=== PATIENT | female | born 1985 | race Caucasian/White ===

== ENCOUNTER → 2016-05-16 | Outpatient (CLI) | payer BC ==
[~2016-05-16] MED LIST: BCPILLS PO; BUPR-79 PO; THY/30 PO; VENL75TA4 PO
== END | disposition home or self-care (01) ==
LOC: C.PAPS 17:08
PROVIDERS: ATTEND Obstetrics & Gynecology
DX: Z01.419 Encounter for gynecological examination (general) (routine) without abnormal findings (principal)

== ENCOUNTER 2017-03-11 01:57 | Emergency (ER) | payer BC ==
[~2017-03-11] VITALS: Ht 167.6 cm; Wt 67.2 kg
[2017-03-11 02:02] VITALS: TEMP 36.5; Ht 167.6 cm; Wt 67.2 kg
[2017-03-11] MEDS ORDERED: METOCLOPRAMIDE HCL INJ 5 MG/ML 2 ML VIAL IV STA (02:08)
[2017-03-11] MEDS ORDERED: KETOROLAC TROMETHAMINE 30 MG/ML VIAL IV STA (02:08)
[2017-03-11] MEDS ORDERED: DiphenhydrAMINE HCL 50 MG/ML VIAL IV STA (02:08)
--- NOTE | 2017-03-11 02:59 | EMERGENCY ROOM VISIT NOTE ---
History First contact with patient: 02:04 Chief Complaint: HEADACHE Stated Complaint: MIGRAINE History of Present Illness The patient is a 32 year old female who presents to the Emergency Room with complaints of migraine today with nausea. Patient states she is crying and slowly developed a migraine today that is similar to prior. It was slow in onset. She describes her headache as throbbing, ranging in severity 8 out of 10 throughout the left frontal region. It does not radiate. Patient with some nausea and photophobia. Patient denies sudden onset headache, chest pain, dyspnea, fever, chills, numbness, tingling, weakness, cold symptoms, neck stiffness, abdominal pain. Normal imaging in the past. Review of Systems See HPI for pertinent positives & negatives. A total of 10 systems reviewed and were otherwise negative. Past Medical/Surgical History Medical Problems: (1) ACUTE RENAL FAILURE, UNSPECIFIED (2) ASTHMA, UNSPECIFIED (3) BIPOLAR DISORDER, UNSPECIFIED (4) DEPRESSIVE DISORDER NEC (5) ivonne filter in place (6) HX-VENOUS THROMBOSIS&EMBOLISM (7) HYPERTENSION NOS (8) HYPOTHYROIDISM NOS (9) MIGRAINE UNSPECIFIED W/O INTRACT MGRN W/O STATUS MIGRAINOSUS (10) OTH PULMON EMBOLISM/INFARCT (11) RHABDOMYOLYSIS (12) SCHIZOPHRENIA NOS-UNSPEC (13) Self-harm (14) TOBACCO USE DISORDER (15) Fishtail Teeth Removal Social History Smoking Status: Former Smoker Alcohol Use: occasionally Drug Use: marijuana Marital Status: in relationship Housing Status: lives alone Occupation Status: employed Current/Historical Medications Scheduled Control Pills ( Control Pills), 1 TAB PO DAILY Bupropion (Wellbutrin Sr), 150 MG PO DAILY Thyroid (Parks Thyroid), 1 TAB PO DAILY Venlafaxine Hcl (Effexor), 75 MG PO DAILY Physical Exam Vital Signs Date Time Temp Pulse Resp B/P (MAP) Pulse Ox O2 Delivery O2 Flow Rate FiO2 03/11/17 02:02 36.5 80 18 162/116 100 Room Air Physical Exam VITALS: Vitals are noted on the nurse's note and reviewed by myself. Vital signs hypertensive. GENERAL: Pleasant female, in no acute distress, nondiaphoretic, well-developed well-nourished. SKIN: The skin was without rashes, erythema, edema, or bruising. There is no tenting of the skin. Capillary reflex less than 2 seconds. HEAD: Normocephalic atraumatic. EARS: External auditory canals clear, tympanic membranes pearly felipe without erythema or effusion bilaterally. EYES: Pupils equal round and reactive to light and accommodation. Conjunctivae without injection, sclerae without icterus. Extraocular movements intact. NOSE: Patent, turbinates without inflammation or discharge. No sinus tenderness. MOUTH: Mucous membranes moist. Pharynx without erythema or exudate. Uvula midline. Airway patent. Tongue does not deviate. NECK: Supple without nuchal rigidity. No lymphadenopathy. No thyromegaly. Cervical spine is nontender. No JVD. HEART: Regular rate and rhythm without murmurs gallops or rubs. LUNGS: Clear to auscultation bilaterally without wheezes, rales or rhonchi. No dullness to percussion. No retractions or accessory muscle use. ABDOMEN: Positive bowel sounds x 4. Normal tympanic percussion. Soft, nontender, without masses or organomegaly. Good sign negative. No guarding or rebound tenderness. MUSCULOSKELETAL: No muscle atrophy, erythema, or edema noted. NEURO: Patient was alert and oriented to person place and time. Normal sensation to light and sharp touch. No focal neurological deficits. Cranial nerves II through XII grossly intact. No pronator drift. Cerebellar exam intact. Medical Decision & Procedures Medications Administered Medications (Trade) Dose Ordered Sig/Waqar Route Start Time Stop Time Status Last Admin Dose Admin Ketorolac Tromethamine (Toradol Inj) 30 mg NOW STAT IV 03/11/17 02:08 03/11/17 02:10 DC 03/11/17 02:25 30 MG Metoclopramide HCl (Reglan Inj) 10 mg NOW STAT IV 03/11/17 02:08 03/11/17 02:10 DC 03/11/17 02:24 10 MG Diphenhydramine HCl (Benadryl Inj) 12.5 mg NOW STAT IV 03/11/17 02:08 03/11/17 02:10 DC 03/11/17 02:25 12.5 MG ED Course Prior records/ancillary studies reviewed. Additional history obtained from family Triage Nursing notes reviewed. The patient's history was concerning for headache. Differential diagnosis: Etiologies such as migraine headache, meningitis, sinusitis, CO exposure, ICH, SAH, infection, tumor, headache, sinus thrombosis, arterial dissection, as well as others were entertained. Physical examination findings: As above. Non-focal. ER treatment provided: By mouth fluids, Toradol, Reglan, Benadryl On reassessment the patient felt better. Diagnostics interpreted by me: Deferred This appears to be consistent with migraine. Patient has a long-standing history of migraines and symptoms feel similar. Patient was upset was crying and this triggered her migraine. She has had normal imaging in the past. Patient was advised to rest, stay well-hydrated and to follow-up family care in a few days or here in the ER sooner for headache, fevers, neck status, worsening signs or symptoms or as needed. Patient was neurovascularly and neurologically intact. She is well-appearing.. By the evaluation outlined above emergent etiologies such as meningitis, sinusitis, CO exposure, ICH, SAH, infection, temporal arteritis, tumor, sinus thrombosis, arterial dissection, as well as others were deemed relatively unlikely. The pt informed about the findings as listed above. All questions were answered and pleased with the treatment. Return instructions were outlined and the patient was discharged in stable condition. Referral: The patient was referred back to their primary care physician for follow-up in 2 to 3 days for a recheck of the current condition. Medical Decision As above Medication Reconcilliation Current Medication List: was personally reviewed by me Blood Pressure Screening Patient's blood pressure: Elevated blood pressure Blood pressure disposition: Elevated BP felt to be situational Impression Primary Impression: Migraine Departure Information Dispostion Home / Self-Care Condition GOOD Referrals No Doctor, Assigned (PCP) Patient Instructions My [facility] Additional Instructions DO NOT drive, drink alcohol, operate machinery, or perform dangerous activities today. You were given medications in the ER that can affect your ability to safely function or operate a vehicle. Rest today in a quiet, peaceful, dark environment and get a full 8-10 hrs of sleep tonight. Avoid loud noises, smoke/smoking, alcohol, bright lights, stress, or physical exertion today to minimize the chance the headache may return. Continue current medications. Ibuprofen(Motrin, Advil) may be used for fever or pain. Use 600mg every six hours as needed. Take with food. Avoid using more than 2400mg in a 24 hour period. Do not use 2400mg per day for more than three consecutive days without physician direction. Prolonged inappropriate use can lead to stomach upset or ulcers. (AND/OR) Acetaminophen(Tylenol) may be used for fever or pain. Use 1000mg every six hours as needed. Avoid using more than 3000mg in a 24 hour period. Return to the ER for passing out, worsening headache, vision problems, neck stiffness/pain, fevers, vomiting, worsening of your condition, or as needed. Follow up with your primary physician and/or a neurologist in 2-3 days for a recheck of your current condition. Problem Qualifiers Primary Impression: Migraine Migraine type: without aura Status migrainosus presence: without status migrainosus Intractability: not intractable Qualified Codes: G43.009 - Migraine without aura, not intractable, without status migrainosus
[2017-03-11 03:04] VITALS: BP 122/76; PULSE 78; O2SAT 97
== END 2017-03-11 03:04 | disposition home or self-care (01) ==
LOC: C.EDB 01:58
DX: G43.909 Migraine, unspecified, not intractable, without status migrainosus (principal); I10 Essential (primary) hypertension; E03.9 Hypothyroidism, unspecified; F31.9 Bipolar disorder, unspecified; F20.9 Schizophrenia, unspecified; J45.909 Unspecified asthma, uncomplicated; Z86.711 Personal history of pulmonary embolism; Z86.718 Personal history of other venous thrombosis and embolism; Z87.891 Personal history of nicotine dependence; Z79.899 Other long term (current) drug therapy